=== PATIENT | female | born 1960 | race Caucasian/White ===

== ENCOUNTER 2020-07-17 12:00 | Emergency (ER) | payer MEDICAID ==
[~2020-07-17] VITALS: Ht 177.8 cm; Wt 104.5 kg
[2020-07-17] MEDS ORDERED: cyclobenzaprine 10mg tablet PO ONE (12:35)
[2020-07-17] MEDS ORDERED: ketorolac tromethamine 15mg/ml inj. IM ONE (12:35)
[2020-07-17 12:38] LABS: BASOPHILS % (AUTO) 1.1 % (0-1); EOSINOPHILS # (AUTO) 0.2 X10'3 (0-0.9); EOSINOPHILS % (AUTO) 6.1 % (0-6); HEMATOCRIT 40.8 % (35.0-45.0); HEMOGLOBIN 13.6 g/dl (12.0-16.0); LYMPHOCYTES # (AUTO) 1.3 X10'3 (1.1-4.8); LYMPHOCYTES % (AUTO) 31.1 % (21-51); MEAN CORPUSCULAR HEMOGLOBIN 31.2 PG (27.0-31.0); MEAN CORPUSCULAR HGB CONC 33.3 g/dL (33.0-36.5); MEAN CORPUSCULAR VOLUME 93.5 FL (78-98); MEAN PLATELET VOLUME 7.4 FL (7.4-10.4); MONOCYTES # (AUTO) 0.4 X10'3 (0-0.9); NEUTROPHILS # (AUTO) 2.1 X10'3 (1.8-7.7); NEUTROPHILS % (AUTO) 51.7 % (42-75); PLATELET COUNT 240 X10'3 (140-440); RED BLOOD COUNT 4.36 X10'6 (4.20-5.60); RED CELL DISTRIBUTION WIDTH 14.4 % (11.5-14.5); WHITE BLOOD COUNT 4.1 X10'3 (4.5-11.0)
--- NOTE | 2020-07-17 12:59 | NUR ---
, FLASH, AT ER ENTRANCE INQUIRING ABOUT 'S CONDITION. FLASH'S CONTACT NUMBER [phone]
[2020-07-17 13:21] LABS: ALANINE AMINOTRANSFERASE 18 U/L (12-78); ALBUMIN 3.9 G/DL (3.4-5.0); ALBUMIN/GLOBULIN RATIO 1.1 (1.1-1.5); ALKALINE PHOSPHATASE 53 IU/L (46-116); ANION GAP 8 (8-16); ASPARTATE AMINO TRANSFERASE 10 U/L (10-37); BILIRUBIN,TOTAL 0.4 MG/DL (0.1-1.0); BLOOD UREA NITROGEN 14 MG/DL (7-18); BUN/CREATININE RATIO 20.9 (6.6-38.0); CHLORIDE 107 MMOL/L (99-107); CREATININE 0.67 MG/DL (0.40-0.90); GLUCOSE 109 MG/DL (70-104); POTASSIUM 4.5 MMOL/L (3.5-5.1); SODIUM 141 MMOL/L (135-145); TOTAL CARBON DIOXIDE 26.1 MMOL/L (24-32); TOTAL PROTEIN 7.3 G/DL (6.4-8.2); eGFR 89 ML/MIN
[2020-07-17] MEDS ORDERED: ORPH100T2 PO (13:42)
[2020-07-17] MEDS ORDERED: IBUP-1984 PO (13:42)
== END 2020-07-17 14:16 | disposition home or self-care (01) ==
LOC: ER 12:00
DX: M54.6 Pain in thoracic spine (principal); R21 Rash and other nonspecific skin eruption; Z79.899 Other long term (current) drug therapy
CPT/HCPCS: 36415; 71045; 80053; 84484; 85025; 85610; 93005; 96372; 99285; J1885

== ENCOUNTER 2023-03-04 08:35 | Day surgery (SDC) | payer MEDICAID ==
[~2023-03-04] VITALS: Ht 177.8 cm; Wt 104.3 kg
[2023-03-04] VITALS (20 sets, daily range): BP systolic 139–194; BP diastolic 66–99; PULSE 54–79; RESP 9–22; TEMP 98; O2SAT 97–100
[~2023-03-04 08:35] MED LIST: HYDR-3972 PO; LEVO100T9 PO; cefazolin 2gm/D5W 100mL 100 ML IV ONE; famotidine 20mg tablet PO ONE; ringers solution, lacted 1,000 ML IV SCH
[2023-03-04] MEDS ORDERED: BUPIVAcaine/PF 2.5 mg/ml (0.25%) 30ml vial ONE (10:34)
[2023-03-04] MEDS ORDERED: morphine 2 MG/ML inj. syringe IV PRN (10:40)
[2023-03-04] MEDS ORDERED: proCHLORperazine 10 MG/2 ml inj IV PRN (10:40)
[2023-03-04] MEDS ORDERED: meperidine/PF 25mg/ml syringe IV PRN ×2 (10:40)
[2023-03-04] MEDS ORDERED: ondansetron/PF 4mg/2ml inj IV PRN (10:40)
[2023-03-04] MEDS ORDERED: ringers solution, lacted 1,000 ML IV SCH (10:40)
[2023-03-04] MEDS ORDERED: BUPIVAcaine/PF 2.5 mg/ml (0.25%) 30ml vial IJ ONE (10:45)
[2023-03-04] MEDS ORDERED: fentaNYL/PF 50MCG/1 ML 2ML syringe ONE (11:01)
[2023-03-04] MEDS ORDERED: propofol inj 20 ML IV ONE (11:02)
[2023-03-04] MEDS ORDERED: midazolam 1 mg/ML 2ml injection ONE (11:02)
[2023-03-04] MEDS ORDERED: sevoflurane 250ml liquid IH ONE (11:08)
[2023-03-04] MEDS ORDERED: LIDOcaine 2% (20mg/ml) 5ml vial ONE (11:08)
[2023-03-04] MEDS ORDERED: dexamethasone sod phosphate 4mg/ml inj. ONE (12:42)
[2023-03-04] MEDS ORDERED: ondansetron/PF 4mg/2ml inj ONE (12:43)
[2023-03-04] MEDS ORDERED: acetaminophen 1,000mg/100ml IV 100 ML IV ONE (12:44)
--- NOTE | 2023-03-04 13:04 | NUR ---
Received from OR via [facility] TO [facility] 3, accompanied by Anesthesiologist MARIAN and report given by Anesthesiolgist. 10L MASK WITH SPO2 A@ 100%. PAIN 10/10, WILL GIVE PAIN MEDICATION TO STABILIZE PAIN AND HIGH BP. LEFT BREAST/AXILLA AREA STERI STRIPS IN PLACE; SCANT DRAINAGE. LR RUNNING AT 100ML/HR. WILL CONTINUE TO MONITOR.
--- NOTE | 2023-03-04 13:12 | NUR ---
VERBAL ORDER FOR HYDRALAZINE FOR HIGH BP. ORDER ENTERED.
[2023-03-04] MEDS: morphine 4 MG/ML inj SYRINge IV PRN ×2 (13:19→13:25)
--- NOTE | 2023-03-04 13:29 | NUR ---
SCANT BLOOD FROM LEFT AXILLA AREA, APPLIED GAUZE AND CHEST BINDER: WILL CONTINUE TO MONITOR.
[2023-03-04] MEDS: hydrALAZINE 20mg/ml inj. IV PRN ×2 (13:41→14:09)
[2023-03-04] MEDS: meperidine/PF 25mg/ml syringe IV PRN ×2 (14:06→14:24)
[2023-03-04] MEDS ORDERED: oxyCODONE/APAP 5-325mg tablet PO ONE (15:10)
--- NOTE | 2023-03-04 15:34 | NUR ---
PATIENT READY FOR D/C PER MD ORDERS. REVIEWED D/C INSTRUCTIONS WITH PATIENT AND PATIENT PER HER REQUEST; EDUCATION RE: DR RUTHERFORD SPECIFIC D/C INSTRUCTIONS. PATIENT WAS ABLE TO AMBULATE TO BATHROOM AND BACK WITH STANDBY SUPERVISION. CHEST BINDER ON, REPLACED GAUZE PER MD ORDERS: NO S/S OF SWELLING OR ADDITIONAL DRAINAGE. THEY HAVE VERBALIZED UNDERSTANDING. PATIENT D/C HOME WITH ALL BELONGINGS AND TRANSFERRED TO PRIVATE VEHICLE IN W/C WITHOUT INCIDENCE. FAMILY WAITING IN CAR TO DRIVE HER HOME.
== END 2023-03-04 15:34 | disposition home or self-care (01) ==
LOC: PAS 08:35
PROVIDERS: ATTEND Surgery
DX: C50.412 Malignant neoplasm of upper-outer quadrant of left female breast (principal); C77.3 Secondary and unspecified malignant neoplasm of axilla and upper limb lymph nodes; E03.9 Hypothyroidism, unspecified; M19.90 Unspecified osteoarthritis, unspecified site; E66.9 Obesity, unspecified; Z68.33 Body mass index [BMI] 33.0-33.9, adult; Z87.891 Personal history of nicotine dependence; Z72.89 Other problems related to lifestyle; Z79.899 Other long term (current) drug therapy; Z96.643 Presence of artificial hip joint, bilateral
CPT/HCPCS: 19301; 38525; 38792; 82948; J0131; J0360; J0690; J1100; J2175; J2250; J2270; J2405; J2704; J3010; J3490; J7030; J7120; Z7506; Z7508; Z7512; A4215; A4618; A6449; A7000